=== PATIENT | male | born 1950 | race Asian ===

== ENCOUNTER → 2022-09-22 | Outpatient (CLI) | payer MEDICAID | LOC: M RAD 07:11 | PROVIDERS: ATTEND Nurse Practitioner Family | DX: M46.1 Sacroiliitis, not elsewhere classified (principal) ==

== ENCOUNTER → 2022-10-03 | Outpatient (CLI) | payer MEDICAID | LOC: M SOG 10:40 | PROVIDERS: ATTEND Orthopaedic Surgery | DX: R10.2 Pelvic and perineal pain (principal); Z53.9 Procedure and treatment not carried out, unspecified reason ==